=== PATIENT | female | born 1990 | race Caucasian/White ===

== ENCOUNTER → 2017-08-05 | Outpatient (CLI) | payer BC ==
[~2017-08-05] MED LIST: Trazodone; Wellbutrin; Zoloft
[2017-08-05 12:14] LABS: Basophils # (auto) 0 uL; Basophils % (auto) 0.5 % (0.0-2.0); Eosinophils # (auto) 0 uL; Eosinophils % (auto) 0.4 % (0.0-7.0); Hematocrit 40.2 % (36.0-46.0); Hemoglobin 13.6 g/dL (12.2-16.2); Lymphocytes # (auto) 2.4 uL; Lymphocytes % (auto) 28.5 % (10.0-50.0); Mean Corpuscular Hemoglobin 28.2 pg (28.0-32.0); Mean Corpuscular Hgb Conc. 33.7 g/dL (32.0-36.0); Mean Corpuscular Volume 83.5 fL (80.0-100.0); Mean Platelet Volume 7.3 fL (7.4-10.4); Monocytes # (auto) 0.6 uL; Neutrophils # (auto) 5.3 uL; Neutrophils % (auto) 63.6 % (37.0-80.0); Platelet Count (auto) 346 10^3/uL (140-450); Red Cell Distribution Width 13.9 % (11.6-16.0); White Blood Cell 8.3 10^3/uL (4.4-10.8)
[2017-08-05 12:41] LABS: Albumin 3.6 g/dL (3.4-5.0); BUN/Creatinine Ratio 18.8; Bilirubin, Total 0.4 mg/dL (0.2-1.0); Potassium 4.2 mmol/L (3.5-5.1); Total Protein 7.6 g/dL (6.4-8.2)
== END | disposition home or self-care (01) ==
LOC: LAB 11:48
PROVIDERS: ATTEND Physician Assistant
DX: F31.60 Bipolar disorder, current episode mixed, unspecified (principal); J45.40 Moderate persistent asthma, uncomplicated; E78.00 Pure hypercholesterolemia, unspecified; M79.1 Myalgia
CPT/HCPCS: 36415; 80053; 80061; 82306; 83036; 84443; 85025

== ENCOUNTER → 2021-12-08 | Day surgery (SDC) | payer BC ==
[2021-12-04 14:16] LABS: INR 0.94 (0.9-1.15); Partial Thromboplastin Time 27.9 sec (23.6-33.0)
[2021-12-04 14:41] LABS: Albumin 3.5 g/dL (3.4-5.0); Potassium 4.5 mmol/L (3.5-5.1)
[2021-12-04 14:44] LABS: Bilirubin, Total 0.2 mg/dL (0.2-1.0); Total Protein 7.1 g/dL (6.4-8.2)
[2021-12-04 15:05] LABS: Mean Corpuscular Hgb Conc. 31.9 g/dL (32.0-36.0); Nucleated Red Blood Cells % 0.1 %; Red Cell Distribution Width 15.2 % (11.8-14.3); White Blood Cell 13.7 10^3/uL (4.4-10.8)
[2021-12-04 15:09] LABS: Basophils # (auto) 0.1 10 ^3/uL (0-0.2); Basophils % (auto) 0.6 % (0.0-2.0); Eosinophils # (auto) 0 10 ^3/uL (0-0.8); Eosinophils % (auto) 0.3 % (0.0-7.0); Hematocrit 38.5 % (36.0-46.0); Hemoglobin 12.3 g/dL (12.2-16.2); Lymphocytes # (auto) 2.7 10 ^3/uL (0.4-5.4); Lymphocytes % (auto) 19.5 % (10.0-50.0); Mean Corpuscular Hemoglobin 26.5 pg (28.0-32.0); Mean Corpuscular Volume 83.3 fL (80.0-100.0); Monocytes # (auto) 0.7 10 ^3/uL (0-1.3); Monocytes % (auto) 5.3 % (0.0-12.0); Neutrophils # (auto) 10.2 10 ^3/uL (1.6-8.6); Neutrophils % (auto) 74.3 % (37.0-80.0); Red Blood Cells 4.63 10^6/uL (4.0-5.20)
[2021-12-04 16:57] LABS: BUN/Creatinine Ratio 16.3
[~2021-12-08] VITALS: Ht 165.1 cm; Wt 120.2 kg
[~2021-12-08] MED LIST changes: +ALBUAER3 IN; +ARIP2TAB PO; +DIVA500T4 PO; +FAMO-68 PO; +FLUO1TAB14 PO; +IBUP800T27 PO; +LEVO25TA6 PO; +LIDOCAINE VISCOUS 2% 15ML UD ONE; +TIZA4CAP PO; +TOPI50TA53 PO; -Trazodone; -Wellbutrin; -Zoloft
[2021-12-08] MEDS: fentaNYL CITRATE 100 MCG/2 ML VL ONE ×3 (10:31→10:38)
[2021-12-08] MEDS: diphenhdrAMINE HCL 50 MG/1 ML VL ONE ×2 (10:31→10:35)
[2021-12-08] MEDS: MIDAZOLAM HCL 5 MG/ML-1ML VIAL ONE ×3 (10:31→10:38)
[2021-12-08 11:20] VITALS: BP 118/77
== END | disposition home or self-care (01) ==
LOC: GI 08:55
PROVIDERS: ATTEND Internal Medicine Gastroenterology
DX: R10.13 Epigastric pain (principal); K21.9 Gastro-esophageal reflux disease without esophagitis; K44.9 Diaphragmatic hernia without obstruction or gangrene; K22.10 Ulcer of esophagus without bleeding; K29.90 Gastroduodenitis, unspecified, without bleeding; K29.50 Unspecified chronic gastritis without bleeding; F31.9 Bipolar disorder, unspecified; E78.5 Hyperlipidemia, unspecified; Z98.890 Other specified postprocedural states; Z79.899 Other long term (current) drug therapy; Z20.822 Contact with and (suspected) exposure to COVID-19
CPT/HCPCS: 36415; 43239; 80053; 85025; 85610; 85730; 88305; 88342; J1200; J2250; J3010; J7030; U0003; 99152

== ENCOUNTER → 2022-06-25 | Outpatient (CLI) | payer BC ==
[~2022-06-25] MED LIST changes: -LIDOCAINE VISCOUS 2% 15ML UD ONE
[2022-06-25 08:15] LABS: Basophils # (auto) 0.2 10 ^3/uL (0-0.2); Basophils % (auto) 1.9 % (0.0-2.0); Eosinophils # (auto) 0.1 10 ^3/uL (0-0.8); Eosinophils % (auto) 0.7 % (0.0-7.0); Hematocrit 39.7 % (36.0-46.0); Lymphocytes # (auto) 2.4 10 ^3/uL (0.4-5.4); Lymphocytes % (auto) 19.6 % (10.0-50.0); Mean Corpuscular Hemoglobin 27.1 pg (28.0-32.0); Mean Corpuscular Hgb Conc. 32.7 g/dL (32.0-36.0); Mean Corpuscular Volume 83.1 fL (80.0-100.0); Monocytes # (auto) 0.5 10 ^3/uL (0-1.3); Monocytes % (auto) 4.4 % (0.0-12.0); Neutrophils # (auto) 8.8 10 ^3/uL (1.6-8.6); Neutrophils % (auto) 73.4 % (37.0-80.0); Red Blood Cells 4.78 10^6/uL (4.0-5.20); Red Cell Distribution Width 14.4 % (11.8-14.3); White Blood Cell 12.1 10^3/uL (4.4-10.8)
[2022-06-25 09:19] LABS: Potassium 4.2 mmol/L (3.5-5.1)
[2022-06-25 09:26] LABS: Albumin 3.2 g/dL (3.4-5.0); BUN/Creatinine Ratio 11.8; Bilirubin, Total 0.3 mg/dL (0.2-1.0); Calcium 9.3 mg/dL (8.5-10.1); Total Protein 7.5 g/dL (6.4-8.2)
== END | disposition home or self-care (01) ==
LOC: LAB 07:57
PROVIDERS: ATTEND Nurse Practitioner Family
DX: Z00.00 Encounter for general adult medical examination without abnormal findings (principal); E55.9 Vitamin D deficiency, unspecified; E03.9 Hypothyroidism, unspecified; E78.5 Hyperlipidemia, unspecified
CPT/HCPCS: 36415; 80053; 80061; 82306; 84443; 85025

== ENCOUNTER → 2023-06-17 | Outpatient (CLI) | payer BC ==
[~2023-06-17] MED LIST changes: +DIVA-93 PO; -DIVA500T4 PO; +IBUP-1456 PO; -IBUP800T27 PO
[2023-06-17 08:31] LABS: Basophils # (auto) 0.1 10 ^3/uL (0-0.2); Basophils % (auto) 0.7 % (0.0-2.0); Eosinophils # (auto) 0.1 10 ^3/uL (0-0.8); Eosinophils % (auto) 0.9 % (0.0-7.0); Hematocrit 40.7 % (36.0-46.0); Hemoglobin 13.4 g/dL (12.2-16.2); Lymphocytes # (auto) 3.2 10 ^3/uL (0.4-5.4); Mean Corpuscular Hemoglobin 28.3 pg (28.0-32.0); Mean Corpuscular Hgb Conc. 32.9 g/dL (32.0-36.0); Monocytes # (auto) 0.7 10 ^3/uL (0-1.3); Monocytes % (auto) 5.6 % (0.0-12.0); Neutrophils # (auto) 7.9 10 ^3/uL (1.6-8.6); Neutrophils % (auto) 65.8 % (37.0-80.0); Nucleated Red Blood Cells % 0.1 %; Red Blood Cells 4.74 10^6/uL (4.0-5.20); Red Cell Distribution Width 13.5 % (11.8-14.3)
[2023-06-17 09:13] LABS: Potassium 4.1 mmol/L (3.5-5.1)
[2023-06-17 09:24] LABS: Albumin 3.2 g/dL (3.4-5.0); BUN/Creatinine Ratio 12.3 (10.0-20.0); Bilirubin, Total 0.4 mg/dL (0.2-1.0); Calcium 9.1 mg/dL (8.5-10.1); Total Protein 7.3 g/dL (6.4-8.2)
== END | disposition home or self-care (01) ==
LOC: LAB 07:45
PROVIDERS: ATTEND Nurse Practitioner Family
DX: E78.5 Hyperlipidemia, unspecified (principal); E55.9 Vitamin D deficiency, unspecified; E03.9 Hypothyroidism, unspecified
CPT/HCPCS: 36415; 80053; 80061; 82306; 84439; 84443; 85025

== ENCOUNTER 2023-07-26 14:05 | Inpatient (IN) | payer BC ==
[~2023-07-26] VITALS: Ht 165.1 cm; Wt 84.2 kg
[2023-07-26 15:13] LABS: Basophils # (auto) 0.1 10 ^3/uL (0-0.2); Basophils % (auto) 0.7 % (0.0-2.0); Eosinophils # (auto) 0 10 ^3/uL (0-0.8); Eosinophils % (auto) 0.1 % (0.0-7.0); Hematocrit 46.6 % (36.0-46.0); Hemoglobin 15.5 g/dL (12.2-16.2); Lymphocytes # (auto) 1.6 10 ^3/uL (0.4-5.4); Lymphocytes % (auto) 9.7 % (10.0-50.0); Mean Corpuscular Hemoglobin 28.3 pg (28.0-32.0); Mean Corpuscular Hgb Conc. 33.2 g/dL (32.0-36.0); Mean Corpuscular Volume 85.4 fL (80.0-100.0); Monocytes # (auto) 1.2 10 ^3/uL (0-1.3); Monocytes % (auto) 7.4 % (0.0-12.0); Neutrophils # (auto) 13.6 10 ^3/uL (1.6-8.6); Neutrophils % (auto) 82.1 % (37.0-80.0); Nucleated Red Blood Cells % 0.1 %; Red Blood Cells 5.46 10^6/uL (4.0-5.20); White Blood Cell 16.5 10^3/uL (4.4-10.8)
[2023-07-26 15:13] LABS: Urine Bacteria NONE SEEN /hpf (None Seen); Urine Blood 1+ /uL (Negative); Urine Clarity Clear (Clear); Urine Color Yellow (Yellow); Urine Mucus FEW (None Seen); Urine Protein, UAD 1+ (Negative); Urine Specific Gravity 1.033 (1.001-1.035); Urine WBC 1 /hpf (0 - 5)
[2023-07-26 15:38] LABS: Alanine Aminotransferase 19 U/L (7-40); Alkaline Phosphatase 164 U/L (46-116); Anion Gap 10.3 (5-15); Blood Urea Nitrogen 10 mg/dL (9-23); Calcium 9.8 mg/dL (8.5-10.1); Carbon Dioxide 21.7 mmol/L (20-30); Chloride 106 mmol/L (98-107); Glucose 105 mg/dL (74-106); Lipase 60 U/L (12-53); Potassium 4.2 mmol/L (3.5-5.1); Sodium 138 mmol/L (136-145)
[2023-07-26 15:39] LABS: Albumin 4.9 g/dL (3.2-4.8); Aspartate Aminotransferase 14 U/L (13-40); Bilirubin, Total 0.4 mg/dL (0.2-1.0); Total Protein 7.6 g/dL (5.7-8.2)
[2023-07-26] MEDS: ONDANSETRON HCL 4 MG/2 ML VIAL IV ONE (19:30)
[2023-07-26] MEDS: SODIUM CHLORIDE 0.9% 1,000 ML IV ONE (19:30)
[2023-07-26] MEDS ORDERED: cefTRIAXone 1GM/50ML D5W 50 ML IV ONE (22:30)
[2023-07-26 23:16] VITALS: PULSE 64; RESP 20; O2SAT 97
[2023-07-26] MEDS ORDERED: SEMA1INJ2 SC (23:30)
[2023-07-26 23:58] LABS: INR 1.04 (0.9-1.15); Partial Thromboplastin Time 27.9 SEC (24.5-34.5); Prothrombin Time 10.9 sec (9.3-11.8)
[2023-07-27] MEDS: MORPHINE SULFATE INJ 2 MG/ml SYRG IV PRN ×2 (00:04→06:13)
[2023-07-27] MEDS: ONDANSETRON HCL 4 MG/2 ML VIAL IV PRN (00:12)
[2023-07-27] MEDS: SODIUM CHLORIDE 0.9% 1,000 ML IV SCH ×2 (00:21→17:08)
[2023-07-27] MEDS: levoFLOXacin 500MG 100 ML IV SCH (04:13)
[2023-07-27 05:00] VITALS: BP 98/54; PULSE 62; RESP 18; TEMP 97.7; O2SAT 96
[2023-07-27 06:19] LABS: Basophils # (auto) 0.1 10 ^3/uL (0-0.2); Basophils % (auto) 0.8 % (0.0-2.0); Eosinophils # (auto) 0.1 10 ^3/uL (0-0.8); Eosinophils % (auto) 0.5 % (0.0-7.0); Hematocrit 43.5 % (36.0-46.0); Hemoglobin 14.4 g/dL (12.2-16.2); Lymphocytes # (auto) 3.1 10 ^3/uL (0.4-5.4); Lymphocytes % (auto) 27.5 % (10.0-50.0); Mean Corpuscular Hemoglobin 28.2 pg (28.0-32.0); Mean Corpuscular Volume 85.2 fL (80.0-100.0); Monocytes # (auto) 1.3 10 ^3/uL (0-1.3); Neutrophils # (auto) 6.9 10 ^3/uL (1.6-8.6); Neutrophils % (auto) 60.2 % (37.0-80.0); Red Blood Cells 5.11 10^6/uL (4.0-5.20); White Blood Cell 11.4 10^3/uL (4.4-10.8)
[2023-07-27 06:51] LABS: Alanine Aminotransferase 14 U/L (7-40); Albumin 4.5 g/dL (3.2-4.8); Alkaline Phosphatase 137 U/L (46-116); Anion Gap 7.9 (5-15); Aspartate Aminotransferase 10 U/L (13-40); Bilirubin, Total 0.5 mg/dL (0.2-1.0); Blood Urea Nitrogen 8 mg/dL (9-23); Calcium 9.2 mg/dL (8.7-10.4); Carbon Dioxide 23.1 mmol/L (20-30); Chloride 107 mmol/L (98-107); Glucose 81 mg/dL (74-106); Potassium 3.9 mmol/L (3.5-5.1); Sodium 138 mmol/L (136-145); Total Protein 7.4 g/dL (5.7-8.2)
[2023-07-27 06:55] LABS: BUN/Creatinine Ratio 10.5 (10.0-20.0)
[2023-07-27] MEDS ORDERED: cefTRIAXone 1GM/50ML D5W 50 ML IV SCH (09:00)
[2023-07-27] MEDS ORDERED: PANTOPRAZOLE 40 MG/10 ML VIAL INJ IV SCH (10:00)
[2023-07-27 13:00] VITALS: BP 103/56; PULSE 63; RESP 19; TEMP 98.2; O2SAT 96
[2023-07-27 16:42] VITALS: BP 91/45; PULSE 57; RESP 20; TEMP 98.1; O2SAT 95
[2023-07-27 20:00] VITALS: PULSE 53; RESP 14; O2SAT 96
[2023-07-27] MEDS: SODIUM CHLORIDE 0.9% 1,000 ML IV ONE (20:22)
[2023-07-27] MEDS: ONDANSETRON HCL 4 MG/2 ML VIAL IV ONE (20:23)
[2023-07-27] MEDS: metroNIDAZOLE 500MG/100ML 100 ML IV SCH (21:44)
[2023-07-27] MEDS: TOPIRAMATE 25 MG TAB PO SCH (21:44)
[2023-07-27 22:00] VITALS: BP 109/68; PULSE 53; RESP 14; TEMP 98.2; O2SAT 96
[2023-07-28] VITALS (7 sets, daily range): BP systolic 97–133; BP diastolic 62–81; PULSE 63–86; RESP 14–22; TEMP 97.8–98.2; O2SAT 93–98
[2023-07-28] MEDS: SODIUM CHLORIDE 0.9% 1,000 ML IV SCH (05:46)
[2023-07-28] MEDS: metroNIDAZOLE 500MG/100ML 100 ML IV SCH ×2 (05:46→14:14)
[2023-07-28] MEDS: LEVOTHYROXINE SODIUM 25 MCG TAB PO SCH (05:55)
[2023-07-28 07:23] LABS: Basophils # (auto) 0.1 10 ^3/uL (0-0.2); Basophils % (auto) 0.7 % (0.0-2.0); Eosinophils # (auto) 0.1 10 ^3/uL (0-0.8); Eosinophils % (auto) 0.7 % (0.0-7.0); Lymphocytes # (auto) 2.3 10 ^3/uL (0.4-5.4); Lymphocytes % (auto) 29.9 % (10.0-50.0); Mean Corpuscular Hemoglobin 28.6 pg (28.0-32.0); Mean Corpuscular Hgb Conc. 33.3 g/dL (32.0-36.0); Mean Corpuscular Volume 85.9 fL (80.0-100.0); Monocytes # (auto) 0.6 10 ^3/uL (0-1.3); Neutrophils # (auto) 4.7 10 ^3/uL (1.6-8.6); Neutrophils % (auto) 60.7 % (37.0-80.0); Red Blood Cells 4.89 10^6/uL (4.0-5.20); Red Cell Distribution Width 13.8 % (11.8-14.3); White Blood Cell 7.8 10^3/uL (4.4-10.8)
[2023-07-28] MEDS ORDERED: BUPIVACAINE HCL 0 ML ONE (08:00)
[2023-07-28] MEDS ORDERED: SUCCINYLCHOLINE CHLORIDE 20 MG/ML 10ML VIAL IV ONE (08:00)
[2023-07-28] MEDS ORDERED: LIDOCAINE 2% JELLY 11ml (GLYDO) ONE (08:00)
[2023-07-28] MEDS ORDERED: LIDOCAINE 1%-Mpf/Epinephrine 1:200,000 30ml VIAL ONE (08:00)
[2023-07-28] MEDS ORDERED: fentaNYL CITRATE 100 MCG/2 ML VL ONE (08:04)
[2023-07-28] MEDS ORDERED: MIDAZOLAM HCL 2MG/2ML 2ml VIAL (1mg/ml) ONE (08:04)
[2023-07-28] MEDS ORDERED: MEPERIDINE HCL (50 MG/ML) 1 ML VIAL ONE (08:04)
[2023-07-28] MEDS ORDERED: POVIDONE IODINE 10 % TOPICAL OINT 30GM TOP ONE (08:06)
[2023-07-28] MEDS ORDERED: DexAMETHasone SOD PHOS 10MG/1ML VIAL INJ ONE (08:06)
[2023-07-28] MEDS ORDERED: PROPOFOL 10 MG/ML 20 ML IV ONE (08:06)
[2023-07-28 08:24] LABS: Alanine Aminotransferase 14 U/L (7-40); Albumin 4.3 g/dL (3.2-4.8); Alkaline Phosphatase 135 U/L (46-116); Anion Gap 9.5 (5-15); Aspartate Aminotransferase 11 U/L (13-40); BUN/Creatinine Ratio 8.9 (10.0-20.0); Bilirubin, Total 0.6 mg/dL (0.2-1.0); Blood Urea Nitrogen 7 mg/dL (9-23); Calcium 9.1 mg/dL (8.7-10.4); Carbon Dioxide 20.5 mmol/L (20-30); Chloride 107 mmol/L (98-107); Glucose 77 mg/dL (74-106); Potassium 3.8 mmol/L (3.5-5.1); Sodium 137 mmol/L (136-145); Total Protein 7.1 g/dL (5.7-8.2)
[2023-07-28] MEDS ORDERED: SUGAMMADEX 200mg/2ml Vial (100MG/ML) IV ONE (09:20)
[2023-07-28] MEDS ORDERED: KETOROLAC TROMETH 30 MG/ML 1ML VIAL IV ONE (09:45)
[2023-07-28] MEDS ORDERED: MIDAZOLAM HCL 2MG/2ML 2ml VIAL (1mg/ml) IV PRN (09:45)
[2023-07-28] MEDS ORDERED: ePHEDrine SULFATE 50 MG/ML AMP IV PRN (09:45)
[2023-07-28] MEDS ORDERED: ONDANSETRON HCL 4 MG/2 ML VIAL IV PRN (09:45)
[2023-07-28] MEDS ORDERED: LABETALOL HCL 5 MG/ML 4ML SYRINGE IV PRN (09:45)
[2023-07-28] MEDS ORDERED: MORPHINE SULFATE 4 MG/ML SYR/VIAL IV PRN (09:45)
[2023-07-28] MEDS ORDERED: HYDROmorphone HCL 2 MG/ML VL/or syr IV PRN (09:45)
[2023-07-28] MEDS: FLUoxetine HCL 20 MG CAP PO SCH (10:00)
[2023-07-28] MEDS: TOPIRAMATE 25 MG TAB PO SCH ×2 (10:00→23:19)
[2023-07-28] MEDS ORDERED: ONDANSETRON HCL 4 MG/2 ML VIAL IV ONE (10:03)
[2023-07-28] MEDS ORDERED: HYDROmorphone HCL 2 MG/ML VL/or syr IV ONE (10:04)
[2023-07-28] MEDS: levoFLOXacin 500MG 100 ML IV SCH (10:24)
[2023-07-28] MEDS: MORPHINE SULFATE INJ 2 MG/ml SYRG IV PRN ×2 (11:27→17:18)
[2023-07-29] VITALS (8 sets, daily range): BP systolic 102–127; BP diastolic 46–84; PULSE 63–94; RESP 17–20; TEMP 37.1; O2SAT 95–100
[2023-07-29] MEDS: metroNIDAZOLE 500MG/100ML 100 ML IV SCH ×4 (00:13→23:53)
[2023-07-29] MEDS: SODIUM CHLORIDE 0.9% 1,000 ML IV SCH ×2 (00:30→17:09)
[2023-07-29 06:39] LABS: Alanine Aminotransferase 160 U/L (7-40); Albumin 3.8 g/dL (3.2-4.8); Alkaline Phosphatase 173 U/L (46-116); Anion Gap 8.9 (5-15); Aspartate Aminotransferase 122 U/L (13-40); BUN/Creatinine Ratio 9.1 (10.0-20.0); Blood Urea Nitrogen 6 mg/dL (9-23); Calcium 8.9 mg/dL (8.7-10.4); Carbon Dioxide 22.1 mmol/L (20-30); Chloride 108 mmol/L (98-107); Glucose 74 mg/dL (74-106); Potassium 4.1 mmol/L (3.5-5.1); Sodium 139 mmol/L (136-145)
[2023-07-29 06:40] LABS: Bilirubin, Total 0.5 mg/dL (0.2-1.0); Total Protein 5.9 g/dL (5.7-8.2)
[2023-07-29] MEDS: LEVOTHYROXINE SODIUM 25 MCG TAB PO SCH (06:56)
[2023-07-29] MEDS: HYDROcodone-ACET 5/325MG TAB PO PRN ×2 (06:57→13:29)
[2023-07-29 07:04] LABS: Basophils # (auto) 0 10 ^3/uL (0-0.2); Basophils % (auto) 0.3 % (0.0-2.0); Eosinophils # (auto) 0 10 ^3/uL (0-0.8); Hematocrit 37.9 % (36.0-46.0); Hemoglobin 12.6 g/dL (12.2-16.2); Lymphocytes # (auto) 1.9 10 ^3/uL (0.4-5.4); Lymphocytes % (auto) 17.1 % (10.0-50.0); Mean Corpuscular Hemoglobin 28.3 pg (28.0-32.0); Mean Corpuscular Hgb Conc. 33.3 g/dL (32.0-36.0); Monocytes # (auto) 0.7 10 ^3/uL (0-1.3); Monocytes % (auto) 6.2 % (0.0-12.0); Neutrophils # (auto) 8.4 10 ^3/uL (1.6-8.6); Neutrophils % (auto) 76.4 % (37.0-80.0); Red Blood Cells 4.46 10^6/uL (4.0-5.20); Red Cell Distribution Width 13.4 % (11.8-14.3)
[2023-07-29] MEDS: TOPIRAMATE 25 MG TAB PO SCH ×2 (10:39→23:54)
[2023-07-29] MEDS: FLUoxetine HCL 20 MG CAP PO SCH (10:39)
[2023-07-29] MEDS: levoFLOXacin 500MG 100 ML IV SCH (10:39)
[2023-07-30] VITALS (8 sets, daily range): BP systolic 108–125; BP diastolic 61–77; PULSE 58–77; RESP 16–20; TEMP 36.8; O2SAT 96–99
[2023-07-30] MEDS: LEVOTHYROXINE SODIUM 25 MCG TAB PO SCH (06:20)
[2023-07-30 06:24] LABS: Basophils # (auto) 0.1 10 ^3/uL (0-0.2); Basophils % (auto) 0.7 % (0.0-2.0); Eosinophils # (auto) 0 10 ^3/uL (0-0.8); Eosinophils % (auto) 0.2 % (0.0-7.0); Hematocrit 37.7 % (36.0-46.0); Hemoglobin 12.6 g/dL (12.2-16.2); Lymphocytes # (auto) 2.9 10 ^3/uL (0.4-5.4); Lymphocytes % (auto) 41.7 % (10.0-50.0); Mean Corpuscular Hemoglobin 28.4 pg (28.0-32.0); Mean Corpuscular Hgb Conc. 33.5 g/dL (32.0-36.0); Mean Corpuscular Volume 84.6 fL (80.0-100.0); Monocytes # (auto) 0.6 10 ^3/uL (0-1.3); Monocytes % (auto) 8.2 % (0.0-12.0); Neutrophils # (auto) 3.5 10 ^3/uL (1.6-8.6); Neutrophils % (auto) 49.2 % (37.0-80.0); Nucleated Red Blood Cells % 0.1 %; Red Blood Cells 4.45 10^6/uL (4.0-5.20); Red Cell Distribution Width 13.8 % (11.8-14.3)
[2023-07-30] MEDS: metroNIDAZOLE 500MG/100ML 100 ML IV SCH ×3 (06:27→22:17)
[2023-07-30 07:48] LABS: Alanine Aminotransferase 427 U/L (7-40); Albumin 3.7 g/dL (3.2-4.8); Alkaline Phosphatase 208 U/L (46-116); Anion Gap 8.6 (5-15); Aspartate Aminotransferase 527 U/L (13-40); Bilirubin, Total 1.2 mg/dL (0.2-1.0); Calcium 8.9 mg/dL (8.5-10.1); Carbon Dioxide 21.4 mmol/L (20-30); Chloride 110 mmol/L (98-107); Glucose 77 mg/dL (74-106); Potassium 3.7 mmol/L (3.5-5.1); Sodium 140 mmol/L (136-145); Total Protein 6.1 g/dL (5.7-8.2)
[2023-07-30] MEDS: TOPIRAMATE 25 MG TAB PO SCH ×2 (09:11→22:17)
[2023-07-30] MEDS: levoFLOXacin 500MG 100 ML IV SCH (09:11)
[2023-07-30] MEDS: FLUoxetine HCL 20 MG CAP PO SCH (09:11)
[2023-07-30] MEDS: SODIUM CHLORIDE 0.9% 1,000 ML IV SCH (09:12)
[2023-07-30 09:52] LABS: BUN/Creatinine Ratio 6.7 (10.0-20.0); Blood Urea Nitrogen < 5 mg/dL (9-23)
[2023-07-30] MEDS: ONDANSETRON HCL 4 MG/2 ML VIAL IV PRN (17:15)
[2023-07-30] MEDS: MORPHINE SULFATE INJ 2 MG/ml SYRG IV PRN (18:53)
[2023-07-31] MEDS: SODIUM CHLORIDE 0.9% 1,000 ML IV SCH ×3 (02:30→19:10)
[2023-07-31 05:00] VITALS: BP 106/63; PULSE 65; RESP 14; TEMP 97.9; O2SAT 95
[2023-07-31 05:14] LABS: Basophils # (auto) 0.1 10 ^3/uL (0-0.2); Basophils % (auto) 0.8 % (0.0-2.0); Eosinophils # (auto) 0.1 10 ^3/uL (0-0.8); Eosinophils % (auto) 0.8 % (0.0-7.0); Hematocrit 39.6 % (36.0-46.0); Hemoglobin 13.5 g/dL (12.2-16.2); Lymphocytes # (auto) 2.7 10 ^3/uL (0.4-5.4); Lymphocytes % (auto) 34.6 % (10.0-50.0); Mean Corpuscular Hemoglobin 28.8 pg (28.0-32.0); Mean Corpuscular Volume 84.6 fL (80.0-100.0); Monocytes # (auto) 0.6 10 ^3/uL (0-1.3); Monocytes % (auto) 7.7 % (0.0-12.0); Neutrophils # (auto) 4.4 10 ^3/uL (1.6-8.6); Neutrophils % (auto) 56.1 % (37.0-80.0); Red Blood Cells 4.68 10^6/uL (4.0-5.20); Red Cell Distribution Width 13.9 % (11.8-14.3); White Blood Cell 7.8 10^3/uL (4.4-10.8)
[2023-07-31 05:27] LABS: Alanine Aminotransferase 437 U/L (7-40); Albumin 3.8 g/dL (3.2-4.8); Alkaline Phosphatase 285 U/L (46-116); Anion Gap 7.5 (5-15); Aspartate Aminotransferase 374 U/L (13-40); Bilirubin, Total 1.9 mg/dL (0.2-1.0); Calcium 9.1 mg/dL (8.7-10.4); Carbon Dioxide 21.5 mmol/L (20-30); Chloride 110 mmol/L (98-107); Glucose 85 mg/dL (74-106); Potassium 3.7 mmol/L (3.5-5.1); Sodium 139 mmol/L (136-145)
[2023-07-31 05:28] LABS: Total Protein 6.3 g/dL (5.7-8.2)
[2023-07-31 05:42] LABS: BUN/Creatinine Ratio 6.7 (10.0-20.0); Blood Urea Nitrogen < 5 mg/dL (9-23)
[2023-07-31] MEDS: LEVOTHYROXINE SODIUM 25 MCG TAB PO SCH (06:12)
[2023-07-31] MEDS: metroNIDAZOLE 500MG/100ML 100 ML IV SCH ×2 (06:12→14:04)
[2023-07-31] MEDS: MORPHINE SULFATE INJ 2 MG/ml SYRG IV PRN (06:13)
[2023-07-31 08:00] VITALS: BP 101/54; PULSE 60; RESP 18; TEMP 98.6; O2SAT 98
[2023-07-31] MEDS: ONDANSETRON HCL 4 MG/2 ML VIAL IV PRN ×2 (08:13→12:28)
[2023-07-31] MEDS: TOPIRAMATE 25 MG TAB PO SCH (09:57)
[2023-07-31] MEDS: levoFLOXacin 500MG 100 ML IV SCH (09:57)
[2023-07-31] MEDS: HYDROcodone-ACET 5/325MG TAB PO PRN ×2 (09:57→18:58)
[2023-07-31] MEDS: FLUoxetine HCL 20 MG CAP PO SCH (09:57)
[2023-07-31 13:00] VITALS: BP 99/67; PULSE 63; RESP 18; TEMP 98.6; O2SAT 96
[2023-07-31 16:46] VITALS: BP 101/65; PULSE 58; RESP 17; TEMP 98; O2SAT 95
== END 2023-07-31 19:15 | disposition short-term general hospital (02) | DRG 419 ==
LOC: ER 14:05 → EEVIPCON 14:05 → OVERFLOW 22:21 → WEST WING 23:07
PROVIDERS: ADMIT Nurse Practitioner; ATTEND Internal Medicine
PROC: 0FT44ZZ Resection of Gallbladder, Percutaneous Endoscopic Approach (ICD-10-PCS; principal; 2023-07-28 08:11)
DX: K80.66 Calculus of gallbladder and bile duct with acute and chronic cholecystitis without obstruction (principal); Z68.30 Body mass index [BMI] 30.0-30.9, adult; E66.9 Obesity, unspecified; R19.7 Diarrhea, unspecified; F31.9 Bipolar disorder, unspecified; E03.9 Hypothyroidism, unspecified; D72.829 Elevated white blood cell count, unspecified; Z88.1 Allergy status to other antibiotic agents
CPT/HCPCS: 36415; 74177; 74181; 76705; 78226; 80053; 81001; 81025; 83605; 83690; 84443; 84702; 85025; 85610; 85730; 86850; 86900; 86901; 87040; C9113; G0378; J0330; J1100; J1956; J2250; J2405; J2704; J3490

== ENCOUNTER → 2023-11-24 | Outpatient (CLI) | payer BC ==
[~2023-11-24] MED LIST changes: -ALBUAER3 IN; -DIVA-93 PO; +SEMA1INJ2 SC; -TIZA4CAP PO
[2023-11-24 12:28] LABS: Basophils # (auto) 0.1 10 ^3/uL (0-0.2); Basophils % (auto) 0.6 % (0.0-2.0); Eosinophils # (auto) 0.1 10 ^3/uL (0-0.8); Eosinophils % (auto) 0.7 % (0.0-7.0); Hematocrit 43.3 % (36.0-46.0); Hemoglobin 14.3 g/dL (12.2-16.2); Lymphocytes # (auto) 2.9 10 ^3/uL (0.4-5.4); Lymphocytes % (auto) 24.5 % (10.0-50.0); Mean Corpuscular Hgb Conc. 32.9 g/dL (32.0-36.0); Mean Corpuscular Volume 85.2 fL (80.0-100.0); Monocytes # (auto) 0.6 10 ^3/uL (0-1.3); Monocytes % (auto) 4.8 % (0.0-12.0); Neutrophils # (auto) 8.3 10 ^3/uL (1.6-8.6); Neutrophils % (auto) 69.4 % (37.0-80.0); Red Blood Cells 5.09 10^6/uL (4.0-5.20); Red Cell Distribution Width 13.5 % (11.8-14.3); White Blood Cell 11.9 10^3/uL (4.4-10.8)
[2023-11-24 12:45] LABS: Alanine Aminotransferase 22 U/L (7-40); Albumin 4.6 g/dL (3.2-4.8); Alkaline Phosphatase 139 U/L (46-116); Anion Gap 8 (5-15); Aspartate Aminotransferase 16 U/L (13-40); BUN/Creatinine Ratio 12.2 (10.0-20.0); Bilirubin, Total 0.4 mg/dL (0.2-1.0); Blood Urea Nitrogen 9 mg/dL (9-23); Carbon Dioxide 26 mmol/L (20-30); Chloride 103 mmol/L (98-107); Glucose 97 mg/dL (74-106); Potassium 4.5 mmol/L (3.5-5.1); Sodium 137 mmol/L (136-145)
[2023-11-24 12:46] LABS: Total Protein 7.5 g/dL (5.7-8.2)
[2023-11-24 13:03] LABS: Lipase 34 U/L (12-53)
== END | disposition home or self-care (01) ==
LOC: LAB 12:11
PROVIDERS: ATTEND Internal Medicine Gastroenterology
DX: K80.00 Calculus of gallbladder with acute cholecystitis without obstruction (principal); R93.3 Abnormal findings on diagnostic imaging of other parts of digestive tract
CPT/HCPCS: 36415; 80053; 83690; 85025

== ENCOUNTER → 2024-01-27 | Outpatient (CLI) | payer BC ==
[2024-01-27 14:03] LABS: T3 Total 1.16 ng/mL (0.60-1.81)
[2024-01-27 14:04] LABS: Follicle Stimulating Hormone 3.18 IU/L (SEE BELOW); Leuteinizing Hormone 2.9 IU/L
== END | disposition home or self-care (01) ==
LOC: LAB 12:50
PROVIDERS: ATTEND Nurse Practitioner Family
DX: R23.2 Flushing (principal)
CPT/HCPCS: 36415; 82670; 82672; 83001; 83002; 84403; 84439; 84443; 84480

== ENCOUNTER 2024-02-01 19:47 | Emergency (ER) | payer BC ==
[~2024-02-01] VITALS: Ht 165.1 cm; Wt 110.5 kg
[2024-02-01 20:22] VITALS: BP 121/73; PULSE 84; RESP 22; TEMP 98; O2SAT 100
[2024-02-01] MEDS ORDERED: IBUP-1456 PO (21:41)
[2024-02-01] MEDS: KETOROLAC TROMETH 60MG/2ML VIAL IM ONE (21:52)
== END 2024-02-01 22:05 | disposition home or self-care (01) ==
LOC: ER 19:47 → EEVIPCON 19:47 → ER 22:05
DX: S83.8X1A Sprain of other specified parts of right knee, initial encounter (principal); Z98.890 Other specified postprocedural states; Z88.8 Allergy status to other drugs, medicaments and biological substances; Z79.899 Other long term (current) drug therapy; X58.XXXA Exposure to other specified factors, initial encounter; Y93.89 Activity, other specified; Y92.89 Other specified places as the place of occurrence of the external cause; Y99.8 Other external cause status
CPT/HCPCS: 29505; 73590; 96372; 99283; J1885

== ENCOUNTER → 2024-07-25 | Outpatient (CLI) | payer BC ==
[2024-07-25 12:43] LABS: Urine Bacteria None Seen /hpf (None Seen)
[2024-07-25 13:01] LABS: Basophils # (auto) 0.1 10 ^3/uL (0-0.2); Basophils % (auto) 0.6 % (0.0-2.0); Eosinophils # (auto) 0.1 10 ^3/uL (0-0.8); Eosinophils % (auto) 0.5 % (0.0-7.0); Hematocrit 40.2 % (36.0-46.0); Hemoglobin 13.8 g/dL (12.2-16.2); Lymphocytes # (auto) 3.4 10 ^3/uL (0.4-5.4); Lymphocytes % (auto) 26.7 % (10.0-50.0); Mean Corpuscular Hemoglobin 28.3 pg (28.0-32.0); Mean Corpuscular Hgb Conc. 34.2 g/dL (32.0-36.0); Mean Corpuscular Volume 82.6 fL (80.0-100.0); Monocytes # (auto) 0.7 10 ^3/uL (0-1.3); Monocytes % (auto) 5.6 % (0.0-12.0); Neutrophils # (auto) 8.4 10 ^3/uL (1.6-8.6); Neutrophils % (auto) 66.6 % (37.0-80.0); Nucleated Red Blood Cells % 0.1 %; Platelet Count (auto) 428 10^3/uL (140-450); Red Blood Cells 4.87 10^6/uL (4.0-5.20); White Blood Cell 12.6 10^3/uL (4.4-10.8)
[2024-07-25 13:20] LABS: Urine Blood Negative /uL (Negative); Urine Clarity Clear (Clear); Urine Color Light-Yellow (Yellow); Urine Protein, UAD Negative (Negative); Urine Specific Gravity 1.015 (1.001-1.035); Urine Urobilinogen Normal (Negative); Urine WBC 1 /hpf (0 - 5); Urine pH 6.5 (5.0-9.0)
[2024-07-25 13:35] LABS: Alanine Aminotransferase 17 U/L (7-40); Albumin 4.4 g/dL (3.2-4.8); Alkaline Phosphatase 150 U/L (46-116); Anion Gap 7 (5-15); Aspartate Aminotransferase 16 U/L (13-40); BUN/Creatinine Ratio 13.7 (10.0-20.0); Bilirubin, Total 0.3 mg/dL (0.2-1.0); Blood Urea Nitrogen 10 mg/dL (9-23); Calcium 9.8 mg/dL (8.7-10.4); Carbon Dioxide 24 mmol/L (20-30); Chloride 106 mmol/L (98-107); Glucose 135 mg/dL (74-106); Sodium 137 mmol/L (136-145); Total Protein 7.3 g/dL (5.7-8.2)
== END | disposition home or self-care (01) ==
LOC: LAB 12:20
PROVIDERS: ATTEND Nurse Practitioner Family
DX: E03.9 Hypothyroidism, unspecified (principal)
CPT/HCPCS: 36415; 80053; 81001; 84443; 85025

== ENCOUNTER → 2024-09-27 | Outpatient (CLI) | payer BC ==
[2024-09-27 12:00] LABS: Alanine Aminotransferase 16 U/L (7-40); Albumin 4.4 g/dL (3.2-4.8); Alkaline Phosphatase 140 U/L (46-116); Aspartate Aminotransferase 14 U/L (13-40); Bilirubin, Total 0.4 mg/dL (0.2-1.0)
[2024-09-27 13:50] LABS: Bilirubin, Direct < 0.1 mg/dL (<0.3)
== END | disposition home or self-care (01) ==
LOC: LAB 10:11
PROVIDERS: ATTEND Podiatrist
DX: B35.1 Tinea unguium (principal)
CPT/HCPCS: 36415; 80076

== ENCOUNTER 2025-06-03 07:39 | Outpatient (CLI) | payer BC ==
[2025-06-03 08:29] LABS: Hematocrit 40.4 % (36.0-46.0); Hemoglobin 13.5 g/dL (12.2-16.2); Mean Corpuscular Hemoglobin 27.6 pg (28.0-32.0); Mean Corpuscular Volume 82.8 fL (80.0-100.0); Nucleated Red Blood Cells % 0.0 %
[2025-06-03 08:45] LABS: Alanine Aminotransferase 18 U/L (7-40); Albumin 4.4 g/dL (3.2-4.8); Anion Gap 9 (5-15); BUN/Creatinine Ratio 17.6 (10.0-20.0); Bilirubin, Total 0.3 mg/dL (0.2-1.0); Blood Urea Nitrogen 13 mg/dL (9-23); Calcium 9.8 mg/dL (8.7-10.4); Carbon Dioxide 24 mmol/L (20-31); Chloride 107 mmol/L (98-107); Cholesterol 186 mg/dL (< 200); Glucose 91 mg/dL (74-106); HDL Cholesterol 55 mg/dL (40-59); Potassium 4.3 mmol/L (3.5-5.1); Sodium 140 mmol/L (136-145); Total Protein 6.9 g/dL (5.7-8.2); Triglycerides 136 mg/dL (< 150)
[2025-06-03 08:49] LABS: Alkaline Phosphatase 127 U/L (46-116)
[2025-06-03 09:13] LABS: Lipase 30 U/L (12-53)
[2025-06-04 16:07] LABS: Anti-Nuclear Antibody Direct Negative (Negative)
== END 2025-06-03 17:00 | disposition home or self-care (01) ==
LOC: LAB 07:39
PROVIDERS: ATTEND Nurse Practitioner Family
DX: I10 Essential (primary) hypertension (principal); E66.01 Morbid (severe) obesity due to excess calories; R73.9 Hyperglycemia, unspecified; K85.91 Acute pancreatitis with uninfected necrosis, unspecified; Z00.01 Encounter for general adult medical examination with abnormal findings
CPT/HCPCS: 36415; 80053; 80061; 82306; 83036; 83690; 84443; 85025; 86038

== ENCOUNTER 2025-10-06 17:53 | Emergency (ER) | payer BC ==
[~2025-10-06] VITALS: Ht 165.1 cm; Wt 122.0 kg
[2025-10-06] MEDS: KETOROLAC TROMETH 30 MG/ML 1ML VIAL IM ONE (22:16)
--- NOTE | 2025-10-06 23:53 | ED.PDOC ---
History of Present Illness HPI Comments 35-year-old female presents with chief complaint of 10/10 right knee pain and swelling. Patient endorses onset of symptoms after slipping and falling and landing in a split position and hearing a 'pop' emanating from her right knee, [place]. She reports previous incidence of spraining her knee in the past. Patient denies having any additional injuries or further acute symptoms at this time. REVIEW OF SYSTEMS: General: No fever, no chills, HEENT: No neck pain, no blurred vision Cardiac: No chest pain. No palpitations. Lungs: No shortness of breath, GI: No abdominal pain, no vomiting Musculoskeletal: Right knee pain , no back pain Skin: No rash, no wound Neuro: No headache, no dizziness, no syncope PHYSICAL EXAM: General: Awake, alert and oriented. No acute distress. Skin: Skin in warm, dry and intact without rashes or lesions. HEENT: The head is normocephalic and atraumatic. Conjunctivae are clear without exudates or hemorrhage. Sclera is non-icteric. Neck: Normal range of motion. No JVD. Cardiac: Regular rate Respiratory: No signs of respiratory distress. No Stridor. Extremities: Right knee swelling and tenderness to lateral or medial side, with the associated decreased range of motion. Remaining upper and lower extremities are atraumatic in appearance without deformity. Neurological: The patient is awake, alert and oriented to person, place, and time with normal speech. Speech is clear. There is no facial asymmetry. Psychiatric: Appropriate mood and affect. Good judgement and insight. Chief Complaint: Lower Extremity Time Seen by MD: 21:30 Primary Care Provider: LEROY MELVIN Reviewed Notes: Nurses Notes, Medications, Allergies Allergies: Coded Allergies: Cephalexin (Unverified Adverse Reaction, Mild, N/V, 12/04/21) Home Meds Active Scripts Ibuprofen (Ibuprofen) 800 Mg Tab, 1 TAB PO TID PRN, #30 TAB 0 Refills Prov:TANVI LOPEZ 02/01/24 Reported Medications Semaglutide (Ozempic 8 mg/3Ml) 1 Inj Inj, SC 07/26/23 Topiramate (Topiramate) 50 Mg Tab, 50 MG PO BID, TAB 12/04/21 Famotidine (Gnp Acid [employer] Maximum) 20 Mg Tab, 20 MG PO BID, TAB 12/04/21 Ibuprofen (Ibuprofen) 800 Mg Tab, 800 MG PO Q8HP, TAB 12/04/21 Fluoxetine HCl (Pmdd) (Fluoxetine HCl) 20 Mg Tab, 40 MG PO, TAB 12/04/21 Levothyroxine Sodium (Levothyroxine Sodium) 25 Mcg Tab, 25 MCG PO QAM, TAB 12/04/21 Aripiprazole (Abilify) 2 Mg Tab, 5 MG PO, TAB 12/04/21 Information Source: Patient Mode of Arrival: Ambulatory Severity: Moderate Timing: Hours Duration: Since onset Prehospital treatment: None Past Medical History PAST MEDICAL HISTORY: Thyroid Surgical History: Cholecystectomy Surgical History (Other): Cyst removal from right wrist PUBLIC HEALTH POLICY ANALYST History: No Pertinent PUBLIC HEALTH POLICY ANALYST History Family History Family History: Unknown Social History Smoker: Non-Smoker Alcohol: Denies ETOH Use Drugs: Denies Drug Use Lives In: Home Was a procedure done? Was a procedure done?: No Differential Dx Considerations may include: Differential diagnoses considered include but are not limited to long bone fracture, sprain, dislocation, contusions, soft tissue injury, vascular injury, other X-Ray, Labs, Meds, VS Vital Signs Date Time Temp Pulse Resp B/P (MAP) Pulse Ox O2 Delivery O2 Flow Rate FiO2 10/06/25 22:20 Room Air* 0 21 10/06/25 22:20 97.0 88 16 150/94 (112) 96 97.0 10/06/25 17:54 97.7 89 16 157/92 98 97.7 Current Medications Medications (Trade) Dose Ordered Sig/Jama Route Start Time Stop Time Status Last Admin Ketorolac Tromethamine (Toradol Injection) 60 mg ONCE ONCE IM 10/06/25 21:30 10/06/25 21:39 DC 10/06/25 22:16 Time of 1ST Reevaluation: 23:46 Reevaluation 1ST: Unchanged Patient Education/Counseling: Need For Follow Up Family Education/Counseling: No Family Present SEPSIS Sepsis Screen Date sepsis recognized/suspect: Oct 06, 2025 Time Sepsis recognized/suspect: 1753 Recent Procedure: No On Antibiotic Therapy: No Respiratory Rate >20: No Heart Rate >90: No Temp<36 C (96.8 F) or >38.3 C: No SBP <90 or MAP <65 mmHG: No New Acute Mental Status Change: No Is the patient on CPAP, BIPAP,: No Physician Orders Ortho Supplies (10/06/25 ) Ortho Supplies (10/06/25 ) R Knee 3v Xray (10/06/25 21:25) Vital Signs Date Time Temp Pulse Resp B/P (MAP) Pulse Ox O2 Delivery O2 Flow Rate FiO2 10/06/25 22:20 Room Air* 0 21 10/06/25 22:20 97.0 88 16 150/94 (112) 96 97.0 10/06/25 17:54 97.7 89 16 157/92 98 97.7 Medications Medications Dose Ordered Sig/Jama Route Start Time Stop Time Status Last Admin Dose Admin Ketorolac Tromethamine 60 mg ONCE ONCE IM 10/06/25 21:30 10/06/25 21:39 DC 10/06/25 22:16 Departure 1 Departure Time of Disposition: 00:49 Impression: Primary Impression: Right knee pain Disposition: HOME / SELF CARE / HOMELESS Condition: Stable Additional Instructions: ED DISCHARGE INSTRUCTIONS Instructions: Please read all instructions provided in this packet carefully. A copy of your x-ray results is included below. Please take this packet to your next follow up appointment. Although you have been discharged from the Emergency Department, this does not mean that you have a "clean bill of health". No definitive diagnosis for your symptoms has been made today. It is possible that you are in the process of developing a serious illness. This is why you must return to the ED without fail if any new or worsening symptoms (especially if your symptoms include chest pain, trouble breathing, abdominal pain, fever, headache, confusion, trouble seeing, or trouble walking) It is also very important that you see a primary care provider (PCP) within the next 3-5 days to follow up. If you are unable to get an appointment, return to the ED for re-evaluation. PROCEDURE(s): RKN3 - R KNEE 3V XRAY REASON: Right knee pain and swelling ORDER NUMBER(s): [id number], ACCESSION NUMBER(s): [id number] CLINICAL INDICATION: Right knee pain and swelling TECHNIQUE: XYXY R KNEE 3V XRAY Comparison: MRI LEFT KNEE WITH CONTRAST on DOS: 06/30/25, XY R FOOT 3 VIEW XRAY on DOS: 09/13/24, XY L FOOT 3 VIEW XRAY on DOS: 09/13/24, XY R TIB FIB XRAY on DOS: 02/01/24 FINDINGS/IMPRESSION: : There is no evidence of acute fracture or dislocation. Trace knee joint effusion. Soft tissues are unremarkable. ATED BY: GEOVANNY READ MD DICTATED DATE/TIME: 10/07/2522 SIGNED BY: GEOVANNY READ MD SIGNED DATE/TIME: 10/07/2522 e-Prescriptions Ibuprofen (Ibuprofen) 600 Mg Tab 1 TAB PO TID PRN for 5 Days, #15 TAB Prov: KAYY MASTERS MD 10/07/25 Acetaminophen (Acetaminophen Er) 650 Mg Tab 650 MG PO TIDPRN PRN, #15 TAB Prov: KAYY MASTERS MD 10/07/25 Comments MDM: Patient felt stable for discharge home patient is able to ambulate. Advised prompt follow up with the primary care provider for further evaluation. Extensive evaluation was performed in attempt to identify or rule out: (See differential diagnosis section) The following tests were ordered, and results were reviewed by me and discussed with patient: (See diagnostic results section) The following test were independently interpreted by me: N/A I reviewed and agreed with the following test results read by other providers: Right knee x-ray I reviewed the following notes from the pt's past medical encounters: February 01, 2024 encounter for right knee sprain Decision regarding hospitalization or escalation of hospital level of care: Risks and benefits of admission for further treatment of patient's condition was considered however due to patient's stable condition patient will be discharged to follow up closely or return to care for worsening of condition or inability to follow up. Critical Care Note Critical Care Time?: No Stability Stability form required: No Heart Score Heart Score: Heart Score Response (Comments) Value History N/A 0 EKG N/A 0 Age N/A 0 Risk Factors N/A 0 Troponin N/A 0 Total 0 I personally scribed for KAYY MASTERS MD ([email or web address]) on 10/06/25 at 23:53. Electronically submitted by Eitan Dominguez ([email or web address]). KAYY MASTERS MD Oct 06, 2025 23:53
--- NOTE | 2025-10-07 00:26 | DVH ---
CLINICAL INDICATION: Right knee pain and swelling TECHNIQUE: XYXY R KNEE 3V XRAY Comparison: MRI LEFT KNEE WITH CONTRAST on DOS: 06/30/25, XY R FOOT 3 VIEW XRAY on DOS: 09/13/24, XY L FOOT 3 VIEW XRAY on DOS: 09/13/24, XY R TIB FIB XRAY on DOS: 02/01/24 FINDINGS/IMPRESSION: : There is no evidence of acute fracture or dislocation. Trace knee joint effusion. Soft tissues are unremarkable.
[2025-10-07] MEDS ORDERED: IBUP-1454 PO (00:52)
[2025-10-07] MEDS ORDERED: ACET650T12 PO (00:52)
[2025-10-07 01:15] VITALS: BP 154/76; PULSE 67; RESP 18; TEMP 99.9; O2SAT 99
== END 2025-10-07 01:18 | disposition home or self-care (01) ==
LOC: ER 17:53 → EEVIPCON 17:53 → ER 10-07 01:17
DX: M25.561 Pain in right knee (principal); M79.89 Other specified soft tissue disorders; E03.9 Hypothyroidism, unspecified; Z79.899 Other long term (current) drug therapy; Z90.49 Acquired absence of other specified parts of digestive tract; Z88.1 Allergy status to other antibiotic agents; W01.0XXA Fall on same level from slipping, tripping and stumbling without subsequent striking against object, initial encounter; Y93.89 Activity, other specified; Y92.89 Other specified places as the place of occurrence of the external cause; Y99.8 Other external cause status
CPT/HCPCS: 73562; 96372; 99283; J1885